=== PATIENT | male | born 1980 | race African-American/Black ===

== ENCOUNTER 2017-01-20 02:31 | Emergency (ER) | payer MEDICAID ==
[~2017-01-20] VITALS: Ht 185.4 cm; Wt 72.7 kg
[2017-01-20] MEDS ORDERED: KETOROLAC TROMETHAMINE 60 MG/2 ML VIAL IM ONE (03:30)
[2017-01-20 04:00] VITALS: BP 118/69
== END 2017-01-20 04:05 | disposition home or self-care (01) ==
LOC: EMS 02:33
DX: G62.9 Polyneuropathy, unspecified (principal); F17.210 Nicotine dependence, cigarettes, uncomplicated
CPT/HCPCS: 96372; 99283; J1885